=== PATIENT | male | born 1990 | race American Indian/Alaskan Native ===

== ENCOUNTER 2018-09-08 15:24 | Emergency (ER) | payer SELFPAY ==
[2018-09-08 15:33] VITALS: BP 172/87
--- NOTE | 2018-09-08 16:28 | Emergency Department Report ---
ED Chest Pain HPI - General Chief Complaint: Chest Pain Stated Complaint: CHEST PAIN/ARM TIGHTNESS Time Seen by Provider: 09/08/18 15:42 Source: patient Mode of arrival: Ambulatory Limitations: No Limitations - History of Present Illness Initial Comments: Mr. Devlin is a very pleasant 27 yo male with hx of tobacco and marijuana abuse who presents with two episodes of heart racing in the past 2-3 days. First episode occurred while he was in bed resting. He felt his heart racing. The sensation lasted several minutes. Today, palpitations, heart racing began while cleaning his home. Today he developed left forearm tightness which caused him great concern. He denies shortness of breath. Denies abdominal pain. Denies specific chest pain. Has been in normal state of health. He smokes one third of a pack per day. He smokes 2-3 joints of marijuana daily. He is smoking marijuana for over 13 years. He obtains marijuana from his "weed man". Last night he did try a new marijuana edible, a small piece of a [place] [employer] bar. Family history - mother has history of hypertension, grandmother has history of CVA. Father is relatively healthy. No known history of heart disease. -: Sudden Onset: during rest, during exertion Severity: mild Quality: other (palpitations with arm tightness) Consistency: intermittent Improves With: rest - Related Data Allergies Allergy/AdvReac Type Severity Reaction Status Date / Time No Known Allergies Allergy Unverified 09/08/18 15:32 Heart Score - HEART Score History: Slightly suspicious EKG: Normal Age: < 45 Risk factors: 1-2 risk factors Troponin: < normal limit HEART Score: 1 ED Review of Systems ROS: Stated complaint: CHEST PAIN/ARM TIGHTNESS Other details as noted in HPI Comment: All other systems reviewed and negative Constitutional: denies: fever, malaise Respiratory: denies: cough Cardiovascular: palpitations ED Past Medical Hx - Past Medical History Previous Medical History?: No - Surgical History Past Surgical History?: No - Family History Family history: hypertension, vascular disease - Social History Smoking Status: Current Every Day Smoker Substance Use Type: Marijuana (daily marijuana use for 13+years) ED Physical Exam - General Limitations: No Limitations General appearance: alert, in no apparent distress - Head Head exam: Present: atraumatic, normocephalic - Eye Eye exam: Present: normal appearance - ENT ENT exam: Present: mucous membranes moist - Neck Neck exam: Present: normal inspection, full ROM. Absent: tenderness, meningismus - Respiratory Respiratory exam: Present: normal lung sounds bilaterally. Absent: respiratory distress, wheezes, rales, rhonchi - Cardiovascular Cardiovascular Exam: Present: regular rate, normal rhythm, normal heart sounds. Absent: systolic murmur, diastolic murmur, rubs, gallop - GI/Abdominal GI/Abdominal exam: Present: soft, normal bowel sounds. Absent: distended, tenderness - Rectal Rectal exam: Present: deferred - Extremities Exam Extremities exam: Present: normal inspection - Back Exam Back exam: Present: normal inspection - Neurological Exam Neurological exam: Present: alert, oriented X3 - Psychiatric Psychiatric exam: Present: normal affect, normal mood - Skin Skin exam: Present: warm, dry, intact, normal color. Absent: rash ED Course Vital Signs 09/08/18 15:30 Temperature 98.6 F Pulse Rate 124 H Respiratory 18 Rate Blood Pressure 172/87 O2 Sat by Pulse 99 Oximetry ED Medical Decision Making - Lab Data Result diagrams: 09/08/18 16:20 - EKG Data Interpretation: normal EKG (with exception of sinus tachycardia rate 100 beats a minute right bundle branch block no signs of pericarditis) 09/08/18 16:25 EKG obtained 1530 Sinus tachycardia rate 100 beats a minute normal axis normal intervals no ST elevation right bundle-branch block no signs of heart strain or signs of pericarditis - Radiology Data Radiology results: report reviewed No acute process, normal chest radiograph exam - Medical Decision Making Mr. Devlin presents with palpitations and left arm tightness. Will rule out PE with d-dimer. Will rule out thyroid disease with TSH. Also will rule out acute HI with troponin. Chest pain is atypical for ACS. He did have notable sinus tachycardia. I suspect tachycardia is due to marijuana use or nicotine abuse. Drug withdrawal is also a consideration. He did not smoke marijuana today after eating edible for first time last night. He denies use of caffeinated drinks such as soda or energy drinks. No constitutional symptoms such as fever malaise or weight changes. If workup is normal, my colleague will arrange discharge disposition. Other considerations pheochromocytoma notable hypertension 172/87 Critical care attestation.: If time is entered above; I have spent that time in minutes in the direct care of this critically ill patient, excluding procedure time. ED Disposition Clinical Impression: Palpitations Disposition: DC-01 TO HOME OR SELFCARE Is pt being admited?: No Does the pt Need Aspirin: No Condition: Stable Instructions: Palpitations (ED) Referrals: [facility] [Outside] - 3-5 Days ANGELIC GOMEZ MD [Staff Physician] - 3-5 Days LUCERO ALVAREZ [Primary Care Provider] - 3-5 Days
--- NOTE | 2018-09-08 16:44 | XRay Report ---
FINAL REPORT PROCEDURE: Chest. TECHNIQUE: PA and lateral views. HISTORY: Chest pain. COMPARISON: No prior studies are available for comparison. FINDINGS: The heart and mediastinum appear normal. The lungs are clear and well expanded. There are no pleural effusions. The soft tissues and regional skeleton are unremarkable. IMPRESSION: Normal study.
[2018-09-08 16:48] LABS: Basophils # (Auto) 0.1 K/mm3 (0.0-0.1); Eosinophils % (Auto) 0.1 % (0.0-4.3); Hematocrit 45.5 % (35.5-45.6); Hemoglobin 14.6 gm/dl (11.8-15.2); Lymphocytes # (Auto) 2.3 K/mm3 (1.2-5.4); Lymphocytes % (Auto) 26.1 % (13.4-35.0); Mean Corpuscular HGB Conc 32 % (32-34); Mean Corpuscular Volume 83 fl (84-94); Monocytes # (Auto) 0.7 K/mm3 (0.0-0.8); Platelet Count 278 K/mm3 (140-440); Red Blood Count 5.47 M/mm3 (3.65-5.03); Red Cell Distribution Width 13.1 % (13.2-15.2)
[2018-09-08 17:03] LABS: Alanine Aminotransferase 20 units/L (7-56); Albumin 4.8 g/dL (3.9-5); BUN/Creatinine Ratio 9; Blood Urea Nitrogen 8 mg/dL (9-20); Calcium 9.4 mg/dL (8.4-10.2); Hemolysis Index 6
== END 2018-09-08 17:46 | disposition home or self-care (01) ==
LOC: ED 15:24
DX: R00.2 Palpitations (principal); F17.200 Nicotine dependence, unspecified, uncomplicated
CPT/HCPCS: 36415; 71046; 80053; 84443; 84484; 85025; 85379; 93005; 93010; 99283